=== PATIENT | female | born 1955 | race Caucasian/White ===

== ENCOUNTER 2018-03-09 23:24 | Emergency (ER) | payer MEDICARE ==
[~2018-03-09] VITALS: Ht 154.9 cm; Wt 79.4 kg
[2018-03-09 23:28] VITALS: BP 190/98
--- NOTE | 2018-03-09 23:33 | NUR ---
PATIENT PRESENTS TO ED WITH BURNING WITH URINATION, URINARY FREQUENCY AND URGENCY X4 DAYS. PT DENIES N/V/D; SKIN IS PINK/WARM/DRY; AAOX4 WITH EVEN AND STEADY GAIT; LUNGS CLEAR BL; HR EVEN AND REGULAR; PT DENIES ANY FEVER, CP, SOB, OR COUGH AT THIS TIME; PATIENT STATES PAIN OF 8/10 AT THIS TIME; VSS; PATIENT POSITIONED FOR COMFORT; HOB ELEVATED; BEDRAILS UP X2; BED DOWN. ER MD MADE AWARE OF PT STATUS. CONTINUE TO MONITOR.
--- NOTE | 2018-03-09 23:36 | NUR ---
AMBULATED TO ER BED 6
[2018-03-10 00:06] LABS: APPEARANCE,URINE TURBID (CLEAR); BILIRUBIN,URINE NEGATIVE (NEGATIVE); BLOOD, URINE 2+ (NEGATIVE); COLOR,URINE YELLOW (YELLOW); LEUKOCYTE ESTERASE ,URINE 3+ (NEGATIVE); NITRITE, URINE POSITIVE (NEGATIVE); UGLUCOSE NEGATIVE (NEGATIVE)
[2018-03-10 00:20] VITALS: BP 158/62
--- NOTE | 2018-03-10 00:20 | NUR ---
Patient discharged with v/s stable. Written and verbal after care instructions given and explained. Patient alert, oriented and verbalized understanding of instructions. Ambulatory with steady gait. All questions addressed prior to discharge. ID band removed. Patient advised to follow up with PMD. Rx of Pyridium and Macrobid given. Patient educated on indication of medication including possible reaction and side effects. Opportunity to ask questions provided and answered.
[2018-03-10 00:23] LABS: RBC,URINE 11-20 (MOD) /HPF (0-5); WBC,URINE TOO MANY TO COUNT /HPF (0-5)
== END 2018-03-10 00:20 | disposition home or self-care (01) ==
LOC: MED 23:24
DX: N39.0 Urinary tract infection, site not specified (principal); E11.9 Type 2 diabetes mellitus without complications; I10 Essential (primary) hypertension; Z79.4 Long term (current) use of insulin; Z88.1 Allergy status to other antibiotic agents
CPT/HCPCS: 81001; 81002; 81025; 87086; 87186; 99284

== ENCOUNTER 2019-01-08 02:21 | Inpatient (IN) | payer MEDICARE, OTHER ==
[2019-01-08] VITALS (23 sets, daily range): BP systolic 71–157; BP diastolic 40–88
[~2019-01-08] VITALS: Ht 162.6 cm; Wt 85.3 kg
[2019-01-08] MEDS ORDERED: ASPI81EC98 PO (02:30)
[2019-01-08] MEDS ORDERED: GABA100C PO (02:30)
[2019-01-08] MEDS ORDERED: GLIP5TER PO (02:30)
[2019-01-08] MEDS ORDERED: METO50TE2 PO (02:30)
--- NOTE | 2019-01-08 02:32 | NUR ---
C/O FALL/SYNCOPE X 30 MINUTES AGO HITTING HER HEAD ON FURNITURE. NO LOC. C/O HEAD/NECK/BACK PAIN. PT IS A&OX4 AND ANSWERS ALL QUESTIONS APPROPRIATELY. NO OTHER OBVIOUS TRAUMA NOTED. STATES SHE IS CURRENTLY TAKING 3 MEDICATIONS FOR HTN INCLUDING METOPROL, LISINOPRINE, AND AMLODOPINE. ALSO ADMITS TO USING NORCO REGULARLY WELL. BOLUS RUNNING ORDERED. BED IN LOW LOCK WITH SIDE RAILS UP X2
[2019-01-08] MEDS ORDERED: AMLO5TAB PO (02:34)
[2019-01-08] MEDS ORDERED: LISI10TA11 PO (02:34)
[2019-01-08] MEDS ORDERED: CLON0.2T16 PO (02:34)
--- NOTE | 2019-01-08 02:35 | NUR ---
DR BADILLO AT BEDSIDE.
[2019-01-08] MEDS ORDERED: NACL 0.9% 1,000 ML IV SCH (02:36)
[2019-01-08] MEDS ORDERED: HYDR-5122 PO (02:37)
[2019-01-08] MEDS ORDERED: NALOXONE 0.4 MG/ML VIAL IVP ONE (02:40)
[2019-01-08] MEDS ORDERED: GLUCAGON 1 MG VIAL IVP ONE (02:40)
--- NOTE | 2019-01-08 02:42 | NUR ---
EKG PERFORMED AT BEDSIDE. PT COVERED IN GOWN DURING PROCEDURE
--- NOTE | 2019-01-08 02:45 | NUR ---
PATIENT STILL HYPOTENSIVE. DR BADILLO MADE AWARE. FLUIDS RUNNING MEDS GIVEN WILL REASSESS IN 10 MINUTES.
--- NOTE | 2019-01-08 02:51 | NUR ---
LAB AT BEDSIDE.
[2019-01-08] MEDS ORDERED: DOPamine 400 MG/D5W PREMIX 250 ML IV ONE (03:15)
--- NOTE | 2019-01-08 03:15 | NUR ---
DR BADILLO INFORMED THAT PATIENT BP STILL LOW.
[2019-01-08 03:17] LABS: BASOPHILS % (AUTO) 0.3 % (0.0-2.0); EOSINOPHILS # (AUTO) 0.2 K/uL (0-0.4); EOSINOPHILS % (AUTO) 2.2 % (0.0-4.0); HEMATOCRIT 26.8 % (36-48); HEMOGLOBIN 9.1 g/dL (12.0-16.0); LYMPHOCYTES # (AUTO) 1.1 K/uL (2.5-16.5); LYMPHOCYTES % (AUTO) 15.5 % (20.5-51.1); MEAN CORPUSCULAR HEMOGLOBIN 31 pg (27-31); MEAN CORPUSCULAR HGB CONC 34 g/dL (33-37); MEAN CORPUSCULAR VOLUME 90.1 fL (80-94); MONOCYTES # (AUTO) 0.5 K/uL (0.8-1.0); MONOCYTES % (AUTO) 7.1 % (1.7-9.3); NEUTROPHILS # (AUTO) 5.3 K/uL (1.8-7.7); NEUTROPHILS % (AUTO) 74.9 % (42.2-75.2); PLATELET COUNT (AUTO) 190 K/uL (140-450); RED BLOOD CELL COUNT(AUTO) 2.98 MIL/uL (4.20-5.40); RED CELL DISTRIBUTION WIDTH 16.6 % (11.6-13.7); WHITE BLOOD COUNT (AUTO) 7.1 K/uL (4.8-10.8)
[2019-01-08 03:29] LABS: ANION GAP 16.9 (8-16); CARBON DIOXIDE 21.6 mmol/L (21-32); CREATININE 1.6 mg/dL (0.6-1.3); POTASSIUM 4.5 mmol/L (3.5-5.1)
--- NOTE | 2019-01-08 03:30 | NUR ---
RIGHT WRIST IV CHECKED FOR PATENCY, GOOD BLOOD RETURN, FLUSHES EASILY. PATIENT DENIES PATIENT, SITE ASSYMPTOMATIC.
[2019-01-08 03:35] LABS: PROTHROMBIN TIME 10.3 secs (10.8-13.4)
[2019-01-08 03:44] LABS: TOTAL BILIRUBIN 0.4 mg/dL (0.0-1.0)
--- NOTE | 2019-01-08 03:52 | NUR ---
PATIENT BP STABALIZED WITH DOPAMINE RUNNING AT 15MCG/KG/MIN. PATIENT AAO. DR BADILLO MADE AWARE.
--- NOTE | 2019-01-08 03:58 | NUR ---
BP 143/75 DR BADILLO MADE AWARE. DOPAMINE DECREASED PER VERBAL ORDER.
--- NOTE | 2019-01-08 04:22 | NUR ---
PT TAKEN TO CT
--- NOTE | 2019-01-08 04:53 | NUR ---
PATIENT BACK FROM CT. DOPAMINE RESTARTED AT 7.5MCG/KG/MIN
[2019-01-08] MEDS ORDERED: LORazepam 2 MG/ML VIAL IVP PRN (05:00)
[2019-01-08] MEDS ORDERED: ALBUTEROL 0.083% 2.5 MG/3 ML NEBU INH PRN (05:00)
[2019-01-08] MEDS ORDERED: ACETAMINOPHEN 325 MG TAB PO PRN (05:00)
--- NOTE | 2019-01-08 05:00 | NUR ---
PATIENT ANSWERING QUESTIONS APPROPRIATLY
[2019-01-08] MEDS ORDERED: DEXTROSE 50% 50 ML SYR IVP PRN (05:20)
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
--- NOTE | 2019-01-08 05:35 | NUR ---
PATIENT ADMITTED TO HOSPITAL ICU ROOM 3 UNDER THE CARE OF DR ESPINOZA. REPORT GIVEN TO RN. PATIENT STABLE DURING TRANSFER.
[2019-01-08] MEDS ORDERED: VANCOMYCIN 1,000 MG in DEXTROSE 5% 250 ML IV SCH (06:00)
[2019-01-08] MEDS: HYDROcodone/APAP 5/325 MG 1 TAB TAB PO PRN ×2 (06:15→11:10)
--- NOTE | 2019-01-08 06:22 | NUR ---
NORCO GIVEN, RATED PAIN 6/10.
--- NOTE | 2019-01-08 06:29 | NUR ---
SPOKE WITH DR. ZHONG REGARDING IVF RATE. NEW ORDER OF NS AT 80ML/HR NOTED.
[2019-01-08] MEDS: NACL 0.9% 1,000 ML IV SCH ×3 (06:51→22:45)
--- NOTE | 2019-01-08 06:59 | NUR ---
CALLED [facility], RECEIVED TELEPHONE CONSENT THAT IT IS OKAY FOR [facility] WILL [facility] PATIENT BODY. Addendum: 01/08/19 at 0700 by Erika Acuña RN DISREGARD DATA ABOVE: INCORRECT PATIENT
[2019-01-08] MEDS ORDERED: VANCOMYCIN 1,000 MG VIAL ONE (07:03)
--- NOTE | 2019-01-08 07:05 | NUR ---
RECEIVED REPORT FROM NOC RN FOR CONTINUITY OF CARE. PATIENT IS AWAKE, ABLE TO FOLLOW COMMANDS. SKIN WARM TO TOUCH WNL, TOENAILS WNL, +2 EDEMA, WITH FINE HAIR GROWTH AND +2 BILATERAL PEDAL PULSES. RFA PERIPHERAL IV G20 PATENT AND INTACT TO NS AT 80 ML/H. ON DOPAMINE DRIP AT 7.5 MCG/KG/MIN. ON ROOM AIR. SAFETY MEASURES IN PLACE. WILL CONTINUE TO MONITOR.
--- NOTE | 2019-01-08 07:15 | NUR ---
GAVE BEDSIDE REPORT TO MORNING SHIFT RNMIKAELA, FOR CONTINUITY OF CARE.
[2019-01-08] MEDS ORDERED: DOPamine 400 MG/D5W PREMIX 250 ML IV SCH (07:25)
[2019-01-08] MEDS: BLOOD GLUCOSE MONITORING 1 DEV DEV FS SCH ×4 (07:38→20:34)
--- NOTE | 2019-01-08 07:39 | NUR ---
DR. ZHONG CALLED BACK, GAVE VERBAL ORDER FOR DOPAMINE DRIP WILL CARRY OUT. KEEP SBP ABOVE 90.
[2019-01-08] MEDS: INSULIN LISPRO SLIDING SCALE 100 UNITS/ML VIAL SUBQ PRN (07:41)
[2019-01-08] MEDS: MIDODRINE 5 MG TAB PO SCH ×3 (07:42→17:51)
--- NOTE | 2019-01-08 07:45 | NUR ---
DR. ZHONG IN, SEEN AND EXAMINED PATIENT. WILL FOLLOW UP WITH ORDERS.
--- NOTE | 2019-01-08 08:54 | NUR ---
PATIENT HAS BEEN SCREENED AND CATEGORIZED MODERATE NUTRITION RISK. PATIENT WILL BE SEEN WITHIN 3-5 DAYS OF ADMISSION. 01/10/19-01/12/[address]
[2019-01-08] MEDS ORDERED: AZTREONAM 1,000 MG in DEXTROSE 5% 50 ML IV SCH (09:00)
[2019-01-08] MEDS: ONDANSETRON 4 MG/2 ML VIAL IVP PRN ×3 (10:57→22:13)
[2019-01-08 11:21] LABS: APPEARANCE,URINE HAZY (CLEAR); BILIRUBIN,URINE NEGATIVE (NEGATIVE); BLOOD, URINE NEGATIVE (NEGATIVE); COLOR,URINE YELLOW (YELLOW); LEUKOCYTE ESTERASE ,URINE TRACE (NEGATIVE); NITRITE, URINE NEGATIVE (NEGATIVE); UGLUCOSE NEGATIVE (NEGATIVE)
[2019-01-08 12:18] LABS: RBC,URINE 0 /HPF (0-5)
[2019-01-08 12:19] LABS: WBC,URINE 0-5 /HPF (0-5)
[2019-01-08 12:20] LABS: URIC ACID CRYSTALS,URINE 0-10 /HPF (None Seen)
--- NOTE | 2019-01-08 13:50 | NUR ---
DR ZHONG PAGED AND CALLED BACK. MADE AWARE THAT PATIENT IS COMPLAINING OF SEVERE PAIN TO LOWER BACK. MORPHINE 4MG ORDERED PRN MED. TRANSCRIBED AND CARRIED OUT.
[2019-01-08] MEDS: MORPHINE SULFATE 4 MG/ML SYR IVP PRN ×2 (14:12→20:39)
--- NOTE | 2019-01-08 19:19 | NUR ---
REPORT GIVEN TO NOC RN FOR CONTINUITY OF CARE. PATIENT IN STABLE CONDITION.
--- NOTE | 2019-01-08 19:30 | NUR ---
RECEIVED REPORT FROM MORNING RN FOR CONTINUITY OF CARE. VS STABLE AT THIS TIME. PT AWAKE, ALERT AND ORIENTED X4. ABLE TO MAKE NEEDS KNOWN. PT AFEBRILE. ABLE TO MAKE NEEDS KNOWN. LUNG SOUNDS CLEAR. NO COUGH NOTED. PT IN ROOM AIR. S1+S2 NOTED. PULSES ARE PALPABLE. SR ON MONITOR. ABDOMEN ROUND, SOFT AND NONDISTENDED. VS ACTIVE IN ALL QUADRANTS. PT DENIES NAUSEA AT THIS TIME. DENIES ANY DIFFICULTY SWALLOWING. PT CONTINENT OF STOOL AND BOWEL. USES BEDSIDE COMMODE OR BEDPAN. RECEIVED PT WITH PERIPHERAL IV ACCESS ON RIGHT FA 20G. LINE WAS FLASHED AND IS PATENT, INTACT, AND ASYMPTOMATIC. PT HAS NS RUNNING AT 80ML/HR. SKIN IS WARM AND DRY TO TOUCH. PT DENIES ANY DISCOMFORT OR CONCERNS AT THIS TIME. ALL SAFETY PRECAUTIONS ARE IN PLACE. BED AT LOW POSSIBLE POSITION. CALL LIGHT WITHIN REACH. WILL CONTINUE TO MONITOR PT.
--- NOTE | 2019-01-08 21:30 | NUR ---
PT NOTIFIED RN THAT SHE WANTS TO VOID. PT STATES THAT SHE FEELS DIZZY AND TOO WEAK TO GET UP AT THIS TIME. PROPOSED TO PT THAT BEDPAN BE USED AT THIS TIME INSTEAD OF THE COMMODE. PT AGREED. PT TOLERATED USING THE BEDPAN AT THIS TIME AND HAD GOOD URINARY OUTPUT
--- NOTE | 2019-01-08 21:40 | NUR ---
ASSISTED PT IN USING BEDSIDE COMMODE. PT WAS ABLE TO TOLERATE IT WITHOUT ANY DISCOMFORT OR DIZZINESS. PT WAS ASSISTED BACK TO BED. VS REMAINS STABLE AT THIS TIME.
--- NOTE | 2019-01-08 22:10 | NUR ---
PT HAD ONE EPISODE OF VOMITING. PT STATES THAT SHE WAS NOT ABLE TO EAT TODAY DUE TO NAUSEA. MEDICATION ADMINISTERED.
--- NOTE | 2019-01-08 23:10 | NUR ---
PT REASSESSED FOR N/V. DENIES ANY N/V AT THIS TIME. SNACK GIVEN TO PT AND WAS ABLE TO TOLERATE IT. NO FURTHER EPISODE OF N/V. WILL CONTINUE TO MONITOR
[2019-01-09] VITALS (10 sets, daily range): BP systolic 129–172; BP diastolic 77–124
--- NOTE | 2019-01-09 01:20 | NUR ---
VS STABLE AT THIS TIME. PT'S EYES ARE CLOSED. RESPIRATIONS ARE EVEN AND UNLABORED. IV SITE REMAINS INTACT. ASYMPTOMATIC AT THIS TIME. WILL CONTINUE TO MONITOR PT.
--- NOTE | 2019-01-09 03:15 | NUR ---
PT ASSISTED TO BEDSIDE COMMODE AT THIS TIME. VS REMAINS STABLE. SR TO ST ON MONITOR. ALL SAFETY PRECAUTIONS ARE STILL IN PLACE. CALL LIGHT WITHIN REACH. WILL CONTINUE TO MONITOR PT
[2019-01-09] MEDS: MORPHINE SULFATE 4 MG/ML SYR IVP PRN ×3 (03:25→12:57)
--- NOTE | 2019-01-09 05:20 | NUR ---
PM CARE PROVIDED TO PT. ABLE TO TOLERATE TURNING AND REPOSITIONING. PT ABLE TO ASSIST IN CLEANING. ALL SAFETY PRECAUTIONS ARE STILL IN PLACE. NO BM AT THIS TIME. WILL CONTINUE TO MONITOR PT.
[2019-01-09] MEDS: BLOOD GLUCOSE MONITORING 1 DEV DEV FS SCH ×3 (06:34→16:27)
[2019-01-09] MEDS: MIDODRINE 5 MG TAB PO SCH (06:34)
[2019-01-09 07:22] LABS: BASOPHILS % (AUTO) 0.5 % (0.0-2.0); EOSINOPHILS # (AUTO) 0.1 K/uL (0-0.4); EOSINOPHILS % (AUTO) 1.6 % (0.0-4.0); HEMATOCRIT 29.7 % (36-48); HEMOGLOBIN 10.2 g/dL (12.0-16.0); LYMPHOCYTES # (AUTO) 0.8 K/uL (2.5-16.5); LYMPHOCYTES % (AUTO) 19.6 % (20.5-51.1); MEAN CORPUSCULAR HEMOGLOBIN 31 pg (27-31); MEAN CORPUSCULAR HGB CONC 34 g/dL (33-37); MONOCYTES # (AUTO) 0.5 K/uL (0.8-1.0); MONOCYTES % (AUTO) 11.1 % (1.7-9.3); NEUTROPHILS # (AUTO) 2.9 K/uL (1.8-7.7); NEUTROPHILS % (AUTO) 67.2 % (42.2-75.2); PLATELET COUNT (AUTO) 176 K/uL (140-450); RED CELL DISTRIBUTION WIDTH 16.3 % (11.6-13.7); WHITE BLOOD COUNT (AUTO) 4.3 K/uL (4.8-10.8)
[2019-01-09] MEDS: ONDANSETRON 4 MG/2 ML VIAL IVP PRN ×3 (07:25→16:28)
--- NOTE | 2019-01-09 07:25 | NUR ---
RECEIVED BEDSIDE REPORT FROM CLINICAL SYSTEMS ANALYST RN. PT IS AWAKE, AAOX4. ABLE TO MAKE NEEDS KNOWN AND FOLLOWS COMMANDS. PT IS AFEBRILE. SINUS TACHY ON MONITOR. PT IS ON ROOM AIR. BILATERAL BREATH SOUNDS CLEAR. BREATHING EVEN AND UNLABORED. ABD ROUND, SOFT, NONTENDER, NONDISTENDED W/ ACTIVE BOWEL SOUNDS. PERIPHERAL IV G 20 TO RIGHT FOREARM PATENT, INTACT, RUNNING IVF NS AT 80 ML/HR. SKIN IS INTACT, DRY AND WARM TO TOUCH. PULSES PALPABLE TO ALL EXTREMITIES. HOB 30 DEGREES, BED IN LOWEST POSITION AND CALL LIGHT WITHIN REACH. WILL CONTINUE TO MONITOR.
--- NOTE | 2019-01-09 07:25 | NUR ---
PT C/O NAUSEA. ZOFRAN GIVEN ORDERED.
[2019-01-09 07:38] LABS: ANION GAP 15.4 (8-16); CARBON DIOXIDE 23.4 mmol/L (21-32); CREATININE 0.9 mg/dL (0.6-1.3); MAGNESIUM 1.4 mg/dL (1.8-2.4); PHOSPHORUS 2.7 mg/dL (2.5-4.9); POTASSIUM 3.8 mmol/L (3.5-5.1); TOTAL BILIRUBIN 1.4 mg/dL (0.0-1.0)
--- NOTE | 2019-01-09 08:00 | NUR ---
DR. ZHONG IN TO SEE AND EXAMINE PT. DR. ZHONG MADE AWARE OF PT'S N/V, CONSTIPATION AND BACK PAIN. WILL FOLLOW UP ON ORDERS.
[2019-01-09] MEDS ORDERED: MAGNESIUM HYDROXIDE 2400 MG/30 ML UDC PO PRN (08:05)
[2019-01-09] MEDS ORDERED: METOPROLOL 5 MG/5 ML VIAL IV PRN (08:05)
--- NOTE | 2019-01-09 09:24 | NUR ---
DR. ESPINOZA IN TO SEE AND EXAMINE PT, MADE AWARE OF MAGNESIUM LEVEL OF 1.4. WILL FOLLOW UP ON ORDERS.
[2019-01-09] MEDS ORDERED: MAG SULF 2000 MG/WATER PREMIX 50 ML IV PRN (09:25)
[2019-01-09] MEDS ORDERED: SODIUM PHOSPHATE 118 ML ENEM RC PRN (09:25)
--- NOTE | 2019-01-09 09:55 | NUR ---
KUB COMPLETED. PT TOLERATED WELL.
[2019-01-09] MEDS ORDERED: METOPROLOL 25 MG TAB PO SCH ×2 (10:00→21:00)
[2019-01-09] MEDS ORDERED: CLON0.2T16 PO (10:01)
[2019-01-09] MEDS ORDERED: METO25TA PO (10:01)
--- NOTE | 2019-01-09 11:07 | NUR ---
PT SEEN BY DR. SCHULTZ. WILL FOLLOW UP ON ORDERS.
[2019-01-09] MEDS: INSULIN LISPRO SLIDING SCALE 100 UNITS/ML VIAL SUBQ PRN (11:57)
--- NOTE | 2019-01-09 11:57 | NUR ---
PT C/O NAUSEA. ZOFRAN GIVEN ORDERED.
--- NOTE | 2019-01-09 12:30 | NUR ---
PT HAD EPISODE OF VOMITING X1. STATED NO APPETITE FOR LUNCH. NO SIGNS OF ACUTE DISTRESS NOTED AT THIS TIME.
--- NOTE | 2019-01-09 13:28 | NUR ---
CM NOTE I SPOKE WITH LISBETH OF [facility] PH# [phone] TO SET UP OUTPATIENT FOLLOW UP APPOINTMENT ON JANUARY 14, 2019 10:20 AM AT [address] [place] [id number]. I GAVE THE PATIENT A COPY OF HER OUTPATIENT APPOINTMENT.
[2019-01-09] MEDS ORDERED: PROBIOTIC SCREEN 1 EA MISC MC PRN (13:35)
--- NOTE | 2019-01-09 14:30 | NUR ---
DR. ESPINOZA MADE AWARE THAT PT VOMITED X1 AND DOES NOT HAVE APPETITE FOR FOOD. PER DR. ESPINOZA, TRANSFER PT TO TELEMETRY INSTEAD. PT MADE AWARE.
--- NOTE | 2019-01-09 16:20 | NUR ---
PT STATED SHE WANTS TO GO HOME AND WILL FEEL BETTER ONCE SHE GETS HOME. DR. ESPINOZA MADE AWARE. PER DR. ESPINOZA, OK TO DISCHARGE PT.
[2019-01-09] MEDS ORDERED: PNEUMOCOCCAL VACCINE 23 MCG/0.5 ML VIAL IMVAC SCH (16:25)
--- NOTE | 2019-01-09 17:15 | NUR ---
PT DISCHARGED HOME VIA PRIVATE VEHICLE ACCOMPANIED BY [employer]HE[employer]. DISCHARGE INSTRUCTIONS, EDUCATION GIVEN. PT VERBALIZED UNDERSTANDING. PNEUMOCOCCAL VACCINE GIVEN PRIOR TO DISCHARGE. PT'S VITAL SIGNS STABLE. NO SIGNS OF ACUTE DISTRESS NOTED AT THIS TIME UPON DISCHARGE.
[2019-01-10] MEDS ORDERED: POLYETHYLENE GLYCOL 17 GM/PKT PO SCH (09:00)
== END 2019-01-09 17:15 | disposition home or self-care (01) | DRG 207 ==
LOC: MED 02:21 → MIC 05:01
PROVIDERS: ADMIT Hospitalist; ATTEND Hospitalist
PROC: 3E0234Z Introduction of Serum, Toxoid and Vaccine into Muscle, Percutaneous Approach (ICD-10-PCS; principal; 2019-01-09)
DX: I95.2 Hypotension due to drugs (principal); N17.9 Acute kidney failure, unspecified; E11.22 Type 2 diabetes mellitus with diabetic chronic kidney disease; E11.42 Type 2 diabetes mellitus with diabetic polyneuropathy; E44.1 Mild protein-calorie malnutrition; D64.9 Anemia, unspecified; T50.905A Adverse effect of unspecified drugs, medicaments and biological substances, initial encounter; I12.9 Hypertensive chronic kidney disease with stage 1 through stage 4 chronic kidney disease, or unspecified chronic kidney disease; G89.29 Other chronic pain; E78.5 Hyperlipidemia, unspecified; E66.9 Obesity, unspecified; N18.9 Chronic kidney disease, unspecified; Z88.1 Allergy status to other antibiotic agents; Z88.2 Allergy status to sulfonamides; Z82.3 Family history of stroke; Z82.49 Family history of ischemic heart disease and other diseases of the circulatory system; Z83.6 Family history of other diseases of the respiratory system; Z68.32 Body mass index [BMI] 32.0-32.9, adult; Z23 Encounter for immunization; N18.2 Chronic kidney disease, stage 2 (mild)
CPT/HCPCS: 36415; 70450; 71045; 72125; 74018; 76770; 80053; 81001; 81003; 82728; 82948; 83540; 83605; 83735; 83880; 84100; 84484; 85025; 85610; 85730; 87040; 87081; 87086; 90732; 93005; 96361; 96374; 96375; 99285; J1265; J1610; J1644; J1815; J2270; J2310; J2405; J3370; J3475; J3490; J7030; J7060; Q0092